=== PATIENT | female | born 1995 | race African-American/Black ===

== ENCOUNTER 2023-07-11 18:59 | Emergency (ER) | payer OTHER, SELFPAY ==
--- NOTE | ~2023-07-11 | XR_ITS ---
EXAMINATION: XR knee RT 3V DATE: 07/11/2023 20:36 INDICATION: Right knee pain and swelling TECHNIQUE: Anteroposterior, oblique and crosstable lateral views of the right knee were obtained COMPARISON: None. FINDINGS: Alignment is normal. No acute fracture. There is outward cortical bulge at the lateral metadiaphysea l region of the proximal fibula which could represent either sequela of old healed fracture or potent ially a sessile osteochondroma. 3.2 cm sclerotic lesion in the central distal diaphysis of the right femur with appearance most consistent with either an enchondroma or bone infarct. No endosteal scallo ping or other aggressive features. Joint spaces appear normal on nonweightbearing imaging. Minimal candelaria int effusion at the suprapatellar pouch. Mild subcutaneous edema anterior to the patellar tendon. Sof t tissues are otherwise unremarkable. IMPRESSION: 1. Minimal right knee joint effusion without acute osseous abnormality. 2. 3.2 cm sclerotic intramedullary lesion in the distal right femoral diaphysis with appearance most suggestive of either an enchondroma or bone infarct. Reviewed, dictated and finalized at location A. [employer]
[2023-07-11 19:17] VITALS: BP 148/89; PULSE 76; RESP 18; TEMP 36.6; O2SAT 100
--- NOTE | 2023-07-11 22:41 | ED.EXTPRO ---
HPI - Extremity Problem General Chief complaint: Extremity Problem,Nontraumatic Stated complaint: R knee pain Time Seen by Provider: 07/11/23 20:48 History of Present Illness HPI Narrative: 27-year-old female reports for evaluation for right knee pain x3 days. Patient states the pain is worse when she is ambulating and moving her knee. She denies known injury or trauma, however endorses that she played a lot of sports growing up and has had knee pain in this knee in the past. She denies history of ligamentous injury or fracture to this knee. She also notes that she is on her feet for long periods of time at her job. Denies fever, nausea or vomiting. States her symptoms improved with ibuprofen and ice. Related Data Allergies Allergy/AdvReac Type Severity Reaction Status Date / Time No Known Allergies Allergy Verified 07/11/23 22:47 Review of Systems Review of Systems: CONSTITUTIONAL: Denies fever, chills, or sweats. EYES: Denies visual changes, redness, or discharge. ENT: Denies rhinorrhea, congestion, sore throat, or otalgia. CARDIOVASCULAR: Denies chest pain, palpitations, or edema. RESPIRATORY: Denies cough or dyspnea. GASTROINTESTINAL: Denies abdominal pain, nausea, vomiting, or diarrhea. GENITOURINARY: Denies dysuria or hematuria. SKIN: Denies rash or itching. MUSCULOSKELETAL: See HPI NEUROLOGIC: Denies headache, numbness, or weakness. PSYCHIATRIC: Denies anxiety or depression. Exam Narrative: GENERAL: Well-appearing, well-nourished, and in no acute distress. HEAD: Normocephalic, atraumatic. NECK: Supple. CHEST: Clear to auscultation. No respiratory distress. HEART: Regular rate and rhythm. No murmur heard. Normal peripheral pulses. EXTREMITIES: RLE: mild edema with tenderness to the medial joint line, patellar ligament, and lateral joint line. No tenderness to patella or distal femur. No laxity with varus or valgus stress. Negative anterior posterior drawer. Full active and passive range of motion of the knee. No warmth or erythema to the knee. DP pulse 2 +. Sensation intact throughout. SKIN: Warm, dry, no rash. NEURO: No focal deficits. Alert and oriented x3 Course Vital Signs Vital signs: Vital Signs Temperature 97.8 F 07/11/23 19:17 Pulse Rate 76 07/11/23 19:17 Respiratory Rate 18 07/11/23 19:17 Blood Pressure 148/89 H 07/11/23 19:17 Pulse Oximetry 100 07/11/23 19:17 Oxygen Delivery Room Air 07/11/23 19:17 Temperature 97.8 F 07/11/23 19:17 Pulse Rate 76 07/11/23 19:17 Respiratory Rate 18 07/11/23 19:17 Blood Pressure 148/89 H 07/11/23 19:17 Pulse Oximetry 100 07/11/23 19:17 Oxygen Delivery Room Air 07/11/23 19:17 MDM - Extremity (Nontraumatic) MDM Narrative Medical decision making narrative: 27-year-old female reports for evaluation for right knee pain x3 days. See HPI for further history. Vitals significant for mildly elevated blood pressure, otherwise unremarkable. Exam is significant for the above. No signs or symptoms of infection. X-ray of the knee shows minimal right knee joint effusion without acute osseous abnormality. There is a 3.2 cm sclerotic intramedullary lesion in the distal right femoral diaphysis with appearance most suggestive of either and a chondroma or bone infarct. Imaging discussed with the patient. She denies known history of sickle cell disease, however does reports she was told at one point she has sickle cell trait. Case discussed with orthopedist, Dr. Hurst, feel the patient be discharged home with anti-inflammatories and a knee immobilizer and closely followed outpatient. Tylenol and ibuprofen provided. Patient placed in knee immobilizer and provided crutches and orthopedic referral. encouraged RICE and Tylenol, ibuprofen sent to pharmacy. strict ED return precautions discussed. She is reporting verbalized understanding. Discharged in stable condition. Discharge Plan Discharge Clinic
[2023-07-11] MEDS: IBUPROFEN 400 MG TABLET 800 MG PO (22:48)
[2023-07-11] MEDS: ACETAMINOPHEN 500 MG TABLET 1000 MG PO (22:49)
[2023-07-11 23:09] VITALS: BP 142/78; PULSE 72; RESP 15; TEMP 36.7; O2SAT 99
== END 2023-07-11 23:11 | disposition home or self-care (01) ==
PROVIDERS: Emergency Provider Physician Assistant
DX: M25.561 Pain in right knee (principal); M89.9 Disorder of bone, unspecified
CPT/HCPCS: 73562; 99283; A9270

== ENCOUNTER 2023-07-26 10:14 | Outpatient (CLI) | payer OTHER, SELFPAY ==
--- NOTE | ~2023-07-26 | MR_ITS ---
EXAMINATION: MR knee RT wo con DATE: 07/26/2023 11:05 INDICATION: Right knee pain TECHNIQUE: Magnetic resonance imaging (MRI) of the right knee was performed without intravenous contr ast. Sequences included coronal PD-weighted FSE, coronal PD-weighted FS FSE, sagittal T2-weighted FS E, sagittal PD-weighted FS FSE and axial PD weighted fat saturated FSE. COMPARISON: 07/11/2023 FINDINGS: Medial compartment: Medial meniscus is normal. Articular cartilage is normal. Lateral compartment: Lateral meniscus is normal. Articular cartilage is normal. Patellofemoral compartment: Deep chondral fissuring at the and caudal two thirds of the lateral patellar facet with tiny focus of minimal subarticular edema-like signal change. There is mild chondral surface regularity along the s uperolateral margin of the lateral trochlea. Remaining cartilage is normal. Ligaments and tendons: Anterior and posterior cruciate ligaments are normal. The medial collateral ligament and fibular rossy ateral ligament complex are normal. There is a small enthesophyte at the lateral margin of the patell a in the junction of the insertion of the quadriceps tendon and superior patellofemoral retinaculum. The extensor mechanism is otherwise unremarkable. The visualized medial and lateral hamstring tendons as well as the iliotibial band are normal. Fluid: Small right knee joint effusion. No loose osteochondral bodies identified. Osseous/other: 8 mm lateral patellar subluxation. The tibial tubercle to trochlear groove distance of 20 mm which is at the upper limits of normal. No fracture or pathologic marrow replacing process. There is increase d fluid signal and swelling of the lateral infrapatellar fat pad along side the patella which can be seen with fat pad impingement syndrome. IMPRESSION: 1. 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 Reviewed, dictated and finalized at location A. [employer] IMPRESSION: 1. 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
== END 2023-07-26 10:15 ==
LOC: GOSHIMG 10:16
PROVIDERS: PCP Orthopaedic Surgery; Visit Provider Orthopaedic Surgery
DX: M22.41 Chondromalacia patellae, right knee (principal); M79.4 Hypertrophy of (infrapatellar) fat pad
CPT/HCPCS: 73721